=== PATIENT | male | born 1985 | race African-American/Black ===

== ENCOUNTER 2019-10-09 14:43 | Emergency (ER) | payer MEDICAID ==
[~2019-10-09] VITALS: Ht 185.4 cm; Wt 70.0 kg
[2019-10-09 14:46] VITALS: BP 132/76
[2019-10-09] MEDS ORDERED: IBUPROFEN 600MG TABLET PO ONE (17:30)
== END 2019-10-09 19:31 | disposition home or self-care (01) ==
LOC: ER 14:43
DX: S20.212A Contusion of left front wall of thorax, initial encounter (principal); S49.82XA Other specified injuries of left shoulder and upper arm, initial encounter; V49.59XA Passenger injured in collision with other motor vehicles in traffic accident, initial encounter; Y93.89 Activity, other specified; Y92.89 Other specified places as the place of occurrence of the external cause; Y99.8 Other external cause status
CPT/HCPCS: 71101; 73030; 99284

== ENCOUNTER 2021-12-20 11:45 | Emergency (ER) | payer MEDICAID ==
[~2021-12-20] VITALS: Ht 185.4 cm; Wt 77.0 kg
[2021-12-20] MEDS: KETOROLAC 60MG/2ML VIAL IM ONE ×2 (12:56→13:25)
[2021-12-20 13:25] VITALS: BP 123/63
== END 2021-12-20 13:34 | disposition left against medical advice (07) ==
LOC: ER 12:05
DX: M54.50 Low back pain, unspecified (principal); R51.9 Headache, unspecified; G82.20 Paraplegia, unspecified
CPT/HCPCS: 96372; 99283; J1885